=== PATIENT | male | born 1995 | race Caucasian/White ===

== ENCOUNTER 2018-12-27 16:34 | Emergency (ER) | payer OTHER, SELFPAY ==
[2018-12-27 16:36] VITALS: BP 112/85; PULSE 84; RESP 16; TEMP 36.1; O2SAT 99; BMI 17.6
--- NOTE | 2018-12-27 17:02 | CM.ED ---
SOCIAL WORK REVIEWED PINK SLIP BY POLICE. CALL TO CRISIS, SPOKE WITH PRESTON. PER PRESTON, PATIENT SENT IN BY CRISIS. COPY OF PATIENT'S TEXT MESSAGES WERE SENT TO CRISIS. PER [employer], PATIENT WITH SUICIDAL AND HOMICIDAL IDEATIONS. UPDATED STAFF. DIAMANTE MCNAMARA, DIRECTOR PRESALES, GEOTHERMAL PLANT MANAGER.
--- NOTE | 2018-12-27 17:05 | ED.RN ---
WHEN TRIAGING PT, PT PRESENTED A LOW RISK FOR SUICIDE. NOTIFIED HUMAN RESOURCES PARTNER TO TALK WITH PT. AFTER THE HUMAN RESOURCES PARTNER SPOKE WITH THE FIELD MACHINIST WHO HAD BEEN DEALING WITH THIS SITUATION. HUMAN RESOURCES PARTNER STATES HE IS HIGH RISK AND SHOULD HAVE A SITTER. THERE WAS TEXT MESSAGES THAT TALKED ABOUT PT BEING SUICIDAL ND HOMICIDAL.
--- NOTE | 2018-12-27 17:32 | EKG12_ITS ---
Test Reason : MENAL CLEARANCE Blood Pressure : / mmHG Vent. Rate : 080 BPM Atrial Rate : 080 BPM P-R Int : 162 ms QRS Dur : 082 ms QT Int : 330 ms P-R-T Axes : 048 105 057 degrees QTc Int : 380 ms Normal sinus rhythm Rightward axis Borderline ECG Confirmed by NICKY ALEMAN ([id number]), production editor LUCILLE ALCAZAR ([id number]) on 12/30/2018 2:20:38 PM Referred By: SHUBHAM Confirmed By:NICKY ALEMAN
--- NOTE | 2018-12-27 17:34 | ED.DCSUM_ITS ---
History of Present Illness Chief Complaint: Suicidal Informant: Patient Onset: Days Context: Gradual Onset Timing: Continuous Current Severity: Moderate Maximum Severity: Moderate Narrative: The patient presents to the emergency department with report of suicidal ideation. The patient frankly denies. Apparently, he is been under significant amount of stress and he does admit to being depressed. He recently lost his job in his home. He is staying with his girlfriends parents in the area. He got into an argument with his mother and had sent threatening text messages. These were forwarded to police. The patient was brought in for further evaluation. He apparently had made both suicidal and homicidal threats. Prior similar symptoms: No Recent Illness/Hospitalization: No Past Medical History - Allergies and Home Meds Allergies/Adverse Reactions: Allergies No Known Allergies Allergy (Verified 12/27/18 16:36) Primary Care Physician: Care Physician,No Primary [Primary Care Provider] - Prior records reviewed: Yes Past Medical History: None Surgical History: no surgical history Smoking Status: Current every day smoker Drugs: Marijuana Review of Systems General: Denies: Chills, Fever, Sweats Eyes: Denies: Visual changes - bilaterally, Diplopia ENT: Denies: Rhinorrhea, Sore throat Cardiovascular: Denies: Chest pain, Palpitations Respiratory: Denies: Dyspnea, Cough, Dyspnea on exertion Gastrointestinal: Denies: Abdominal pain, Nausea, Vomiting, Diarrhea, Melena, Hematochezia Genitourinary: Denies: Dysuria, Hematuria, Frequency Musculoskeletal: Denies: Back pain, Extremity Pain Skin: Denies: Rash, Wounds Neurological: Denies: Headache, Weakness, Numbness Psych: Reports: Depression, Suicidal thoughts Physical Exam Vital Signs/Narrative: Vital Signs Temp Pulse Resp BP Pulse Ox 12/27/18 16:36 97.0 F L 84 16 112/85 H 99 Inital Vital Signs reviewed: Yes General: Well nourished, Well developed, No Acute Distress Head: Normocephalic, Atraumatic Eyes: Perrl, EOMI ENT: Moist mucous membranes, No rhinorrhea Neck: Supple, Nontender Cardiovascular: Regular rate, Regular rhythm, No murmurs Respiratory: No distress, CTA bilaterally, Chest nontender Abdomen: Soft, Nontender, Nondistended, Normal bowel sounds Back: Nontender, Normal Inspection Extremities: Nontender, No edema Skin: Normal color, No rash Neurological: Alert, Oriented x3, Cranial nerves II-XII grossly intact, Normal Strength, Normal Sensation Psychological: Normal affect, Normal Mood Diagnostic/Tx/Re-eval Abnormal Lab Results 12/27/18 12/27/18 12/27/18 17:55 17:55 17:55 WBC 8.5 RBC 5.63 Hgb 16.9 H Hct 50.0 MCV 88.8 MCH 30.0 MCHC 33.8 RDW Std Deviation 41.4 RDW Coeff of Bre 12.6 Plt Count 182 MPV 10.1 Immature Gran % (Auto) 0.500 Neut % (Auto) 62.7 Lymph % (Auto) 25.4 [place] % (Auto) 7.3 Eos % (Auto) 3.4 Baso % (Auto) 0.7 Absolute Neuts (auto) 5.4 Absolute Lymphs (auto) 2.17 Nucleated RBC % 0 Sodium 138 Potassium 3.5 Chloride 105 Carbon Dioxide 29.0 Anion Gap 4 L BUN 11 Creatinine 0.94 Estim Creat Clear Calc 82.44 Est GFR (MDRD) Af Amer 126 Est GFR (MDRD) Non-Af 104 BUN/Creatinine Ratio 11.7 Glucose 95 Calcium 9.5 Urine Opiates Screen Urine Methadone Screen Ur Barbiturates Screen Ur Phencyclidine Scrn Ur Amphetamines Screen U Methamphetamin-MDMA U Benzodiazepines Scrn Urine Cocaine Screen U Cannabinoids Screen Ur Drug Screen Comment Ethyl Alcohol < 3.0 12/27/18 17:55 WBC RBC Hgb Hct MCV MCH MCHC RDW Std Deviation RDW Coeff of Bre Plt Count MPV Immature Gran % (Auto) Neut % (Auto) Lymph % (Auto) [place] % (Auto) Eos % (Auto) Baso % (Auto) Absolute Neuts (auto) Absolute Lymphs (auto) Nucleated RBC % Sodium Potassium Chloride Carbon Dioxide Anion Gap BUN Creatinine Estim Creat Clear Calc Est GFR (MDRD) Af Amer Est GFR (MDRD) Non-Af BUN/Creatinine Ratio Glucose Calcium Urine Opiates Screen NEGATIVE Urine Methadone Screen NEGATIVE Ur Barbiturates Screen NEGATIVE Ur Phencyclidine Scrn NEGATIVE Ur Amphetamines Screen NEGATIVE U Methamphetamin-MDMA NEGATIVE U Benzodiazepines Scrn NEGATIVE Urine Cocaine Screen NEGATIVE U Cannabinoids Screen POSITIVE H Ur Drug Screen Comment Ethyl Alcohol - Medical Decision Making The patient presents after making suicidal homicidal threats. I was able to review his text messages. He denies these threats, but when confronted he was agreeable. Metabolic screening exam was performed and was unremarkable. At this point, the patient is medically cleared for psychiatric admission. He will be transferred to psychiatric facility. Impression 1. Suicidal ideation with plan ED Disposition - Plan for ED Patient: Referrals: Care Physician,No Primary [Primary Care Provider] -
[2018-12-27 18:03] LABS: Absolute Lymphocyte Count 2.17 X10^3/uL (0.83-4.51); Absolute Neutrophil Count 5.4 X10^3/uL (2.0-7.7); Basophil# 0.06 X10^3/uL; Basophil% 0.7 % (0-1); Eosinophil# 0.29 X10^3/uL; Eosinophils% 3.4 % (0-5); Hemoglobin 16.9 g/dL (13.0-16.5); Lymphocyte # 2.17 X10^3/ul (4.0); Lymphocyte % 25.4 % (19-41); Mean Corp Hgb Conc 33.8 g/dL (32-36); Mean Corpuscular Volume 88.8 fL (80-94); Mean Platelet Vol. 10.1 fl (6.2-12.0); Monocyte# 0.62 X10^3/uL; Monocyte% 7.3 % (0-10); NRBC Flagged by Analyzer 0 % (0-5); Neutrophil # 5.35 X10^3/uL (2.7-7.7); Neutrophil % 62.7 % (47-70); Platelet Count 182 K/mm3 (150-450); RBC Distribution Width CV 12.6 % (11.6-14.6); RBC Distribution Width SD 41.4 fl (35.1-43.9); Red Blood Count 5.63 M/mm3 (4.6-6.2); White Blood Count 8.5 K/mm3 (4.4-11.0)
[2018-12-27 18:20] LABS: Anion Gap 4 (5-15); BUN 11 mg/dL (7-18); BUN/Creat Ratio 11.7 RATIO (10-20); Calcium,Total 9.5 mg/dL (8.5-10.1); Chloride 105 mmol/L (98-107); Creatinine, Serum 0.94 mg/dL (0.70-1.30); EST Glomerular Filtration Rate 104 mL/min (>60); Est Glom Filt Rate - Afr Amer 126 mL/min (>60); Estimated Creatinine Clearance 82.44 ml/min; Glucose 95 mg/dL (74-106); Potassium 3.5 mmol/L (3.5-5.1); Sodium Level 138 mmol/L (136-145)
[2018-12-27 18:22] LABS: Amphetamine Urine VISTA NEGATIVE (<1000 ng/mL); Barbiturate Urine VISTA NEGATIVE (< 200 ng/mL); Benzodiazepine Urine VISTA NEGATIVE (< 200 ng/mL); Cocaine Urine VISTA NEGATIVE (< 300 ng/mL); Ecstacy Urine VISTA NEGATIVE (< 500 ng/mL); Methadone Urine VISTA NEGATIVE (< 300 ng/mL); PCP Urine VISTA NEGATIVE (< 25 ng/mL); THC Urine VISTA POSITIVE (< 50 ng/mL); Vista UDS pH Range 6
--- NOTE | 2018-12-27 18:24 | ED.RN ---
pt eclining meds at this time. pt cooperative and calm. dr beebe
[2018-12-27 18:59] LABS: Alcohol, Blood (Medical)-Serum < 3.0 mg/dL
[2018-12-27 20:49] VITALS: RESP 16
[2018-12-27 21:36] VITALS: BP 139/75; PULSE 72; RESP 16; O2SAT 99
[2018-12-27] MEDS: DiphenhydrAMINE 25 MG Capsule 50 MG PO (21:42)
[2018-12-27] MEDS: LORazepam 1 MG Tablet 2 MG PO (21:43)
--- NOTE | 2018-12-27 21:50 | CM.ED ---
SOCIAL WORK PER CRISIS, PLAN IS FOR HOSPITALIZATION. REFERRAL TO BE FAXED TO [facility]. DIAMANTE MCNAMARA, QUILL SKINNER, RAILROAD CAR CLEANER.
[2018-12-27 22:07] VITALS: BP 125/89; PULSE 88; RESP 16; O2SAT 97
[2018-12-27 23:01] VITALS: RESP 16
[2018-12-28] VITALS (9 sets, daily range): BP systolic 110–134; BP diastolic 75–90; PULSE 80–104; RESP 14–18; TEMP 36.8; O2SAT 97–99
--- NOTE | 2018-12-28 02:45 | NURSING ---
ACCEPTED TO [facility] BY DOCTOR VERNELL [facility] [phone]
== END 2018-12-28 12:36 ==
LOC: ED 17:40
PROVIDERS: Emergency Provider Emergency Medicine
DX: R45.851 Suicidal ideations (principal); F32.9 Major depressive disorder, single episode, unspecified; R45.850 Homicidal ideations; Z56.0 Unemployment, unspecified; F17.200 Nicotine dependence, unspecified, uncomplicated
CPT/HCPCS: 36415; 80048; 80307; 80320; 85025; 93005; 99285; G0480